=== PATIENT | female | born 1975 | race American Indian/Alaskan Native ===

== ENCOUNTER 2017-04-30 12:40 | Outpatient (CLI) | payer BC ==
--- NOTE | 2017-04-30 14:07 | Mammography Report ---
Bilateral mammogram: No previous studies available. CAD study utilized. Findings: Scattered glandular parenchyma bilaterally. Focal asymmetry outer posterior right breast and inner posterior right breast. Focal asymmetry outer anterior left breast and smaller inner mid left breast. Focal circumscribed asymmetries upper posterior right breast. No microcalcification. Benign axilla. Asymmetries right and left breast. Recommend comparison with previous studies. If previous studies are not available Spot findings sonographic examination of the eyes. BI-RADS zero.
== END 2017-04-30 12:41 | disposition home or self-care (01) ==
LOC: SPVIMAG 12:40
PROVIDERS: ATTEND Family Medicine
DX: Z12.31 Encounter for screening mammogram for malignant neoplasm of breast (principal)
CPT/HCPCS: 77067

== ENCOUNTER 2017-05-17 15:37 | Outpatient (CLI) | payer BC ==
--- NOTE | 2017-05-17 16:29 | Mammography Report ---
BILATERAL DIGITAL DIAGNOSTIC MAMMOGRAM : 05/17/17 15:37:00 CLINICAL: Recalled for bilateral asymmetries. COMPARISON:05/28/17 screening FINDINGS: Bilateral additional mammographic views were performed and are negative. IMPRESSION: Negative Mammogram. BI-RADS CATEGORY: 1 -- Negative RECOMMENDATION: Routine mammographic screening in one year. ACR BI-RADS MAMMOGRAPHIC CODES: 0 = Needs additional imaging evaluation; 1 = Negative; 2 = Benign; 3 = Probably benign; 4 = Suspicious; 5 = Malignant; 6 = Known biopsy-proven malignancy COMMENT: 1. Dense breast tissue, i.e., adenosis, fibrocystic changes, etc., may obscure an underlying neoplasm. 2. Approximately 10% of cancers are not detected with mammography. 3. A negative mammography report should not delay biopsy if a clinically suspicious mass is present. COMMENT: Patient follow-up letters are generated via our [employer] application.
== END 2017-05-17 15:38 | disposition home or self-care (01) ==
LOC: SPVWC 15:37
PROVIDERS: ATTEND Internal Medicine
DX: R92.8 Other abnormal and inconclusive findings on diagnostic imaging of breast (principal)
CPT/HCPCS: 77066

== ENCOUNTER 2018-05-06 08:49 | Outpatient (CLI) | payer BC ==
--- NOTE | 2018-05-06 12:12 | Mammography Report ---
Bilateral mammogram: Compared to 05/17/17 and 04/30/17. CAD study utilized. Findings: Predominance adipose tissue bilaterally. New focal asymmetry lower posterior left breast. Seen only on MLO view. No microcalcification. Normal axilla. Impression: New asymmetry left breast. Recommend spot compression and if necessary sonographic examination. BI-RADS CATEGORY: 0 = Needs additional imaging evaluation ACR BI-RADS MAMMOGRAPHIC CODES: 0 = Needs additional imaging evaluation; 1 = Negative; 2 = Benign; 3 = Probably benign; 4 = Suspicious; 5 = Malignant; 6 = Known biopsy-proven malignancy COMMENT: 1. Dense breast tissue, i.e., adenosis, fibrocystic changes, etc., may obscure an underlying neoplasm. 2. Approximately 10% of cancers are not detected with mammography. 3. A negative mammography report should not delay biopsy if a clinically suspicious mass is present. COMMENT: Patient follow-up letters are generated in [employer].
== END 2018-05-06 08:50 | disposition home or self-care (01) ==
LOC: SPVWC 08:49
PROVIDERS: ATTEND Internal Medicine
DX: Z12.31 Encounter for screening mammogram for malignant neoplasm of breast (principal)
CPT/HCPCS: 77067

== ENCOUNTER 2018-05-27 10:30 | Outpatient (CLI) | payer BC ==
--- NOTE | 2018-05-27 11:32 | Mammography Report ---
LEFT DIGITAL DIAGNOSTIC MAMMOGRAM : 05/27/18 10:30:00 CLINICAL: Recalled for asymmetry. COMPARISON:05/06/18 screening FINDINGS: Additional mammographic views were performed and are negative. IMPRESSION: Negative Mammogram. BI-RADS CATEGORY: 1 -- Negative RECOMMENDATION: Routine mammographic screening in one year. ACR BI-RADS MAMMOGRAPHIC CODES: 0 = Needs additional imaging evaluation; 1 = Negative; 2 = Benign; 3 = Probably benign; 4 = Suspicious; 5 = Malignant; 6 = Known biopsy-proven malignancy COMMENT: 1. Dense breast tissue, i.e., adenosis, fibrocystic changes, etc., may obscure an underlying neoplasm. 2. Approximately 10% of cancers are not detected with mammography. 3. A negative mammography report should not delay biopsy if a clinically suspicious mass is present. COMMENT: Patient follow-up letters are generated via our [employer] application.
== END 2018-05-27 10:31 | disposition home or self-care (01) ==
LOC: SPVWC 10:30
PROVIDERS: ATTEND Internal Medicine
DX: R92.8 Other abnormal and inconclusive findings on diagnostic imaging of breast (principal)

== ENCOUNTER 2019-06-02 09:03 | Outpatient (CLI) | payer BC ==
--- NOTE | 2019-06-02 10:27 | Mammography Report ---
DIGITAL SCREENING MAMMOGRAM WITH CAD, 06/02/2019 INDICATION: Routine screening mammography. TECHNIQUE: Digital bilateral 2D mammography was obtained in the craniocaudal and mediolateral obliq ue projections. This examination was interpreted with the benefit of Computer-Aided Detection analysi s. COMPARISON: 05/06/2018 FINDINGS: Breast Density: The breasts are heterogeneously dense, which may obscure small masses. There is no evidence of dominant mass, suspicious calcifications or architectural distortion in eithe r breast. IMPRESSION: No mammographic evidence of malignancy. Follow up recommendation: Routine yearly BI-RADS Category 1: Negative. A "normal" or negative report should not discourage follow up or biopsy of a clinically significant f inding. A written summary of these findings will be mailed to the patient. The patient will be entered into a mammography reporting system which will generate a reminder letter for the patient's next appointmen t at the appropriate interval. The [employer] recommends yearly mammograms starting at age 40 and continuing as l mandie as a woman is in good health. Breast MRI is recommended for women with an approximate 20-25% or greater lifetime risk of breast cancer, including women with a strong family history of breast or ova rashard cancer or who have been treated for Hodgkin's disease. Signer Name: Nahun Maloney MD Signed: 06/02/2019 10:22 AM Workstation Name: [id number]
== END 2019-06-02 09:04 | disposition home or self-care (01) ==
LOC: SPVWC 09:03
PROVIDERS: ATTEND Family Medicine
DX: Z12.31 Encounter for screening mammogram for malignant neoplasm of breast (principal)
CPT/HCPCS: 77067

== ENCOUNTER 2020-06-02 15:50 | Outpatient (CLI) | payer BC ==
--- NOTE | 2020-06-02 17:19 | Mammography Report ---
DIGITAL SCREENING MAMMOGRAM WITH CAD, 06/02/2020 CLINICAL INFORMATION / INDICATION: Routine screening mammography. SCREENING MAMMO Z12.31 TECHNIQUE: Digital bilateral 2D mammography was obtained in the craniocaudal and mediolateral obliqu e projections. This examination was interpreted with the benefit of Computer-Aided Detection analysis . COMPARISON: 04/30/17 and 06/02/19. FINDINGS: Breast Density: There are scattered areas of fibroglandular density. No dominant mass, suspicious calcifications, or architectural distortion in either breast. IMPRESSION: No mammographic evidence of malignancy. Follow up recommendation: Routine yearly BI-RADS Category 1: Negative. A "normal" or negative report should not discourage follow up or biopsy of a clinically significant f inding. A written summary of these findings will be mailed to the patient. The patient will be entered into a mammography reporting system which will generate a reminder letter for the patient's next appointmen t at the appropriate interval. The [employer] recommends yearly mammograms starting at age 40 and continuing as l mandie as a woman is in good health. Breast MRI is recommended for women with an approximate 20-25% or greater lifetime risk of breast cancer, including women with a strong family history of breast or ova rashard cancer or who have been treated for Hodgkin's disease. Signer Name: Chris Prather MD Signed: 06/02/2020 5:14 PM Workstation Name: [id number]
== END 2020-06-02 15:51 | disposition home or self-care (01) ==
LOC: SPVWC 15:50
PROVIDERS: ATTEND Family Medicine
DX: Z12.31 Encounter for screening mammogram for malignant neoplasm of breast (principal)
CPT/HCPCS: 77067

== ENCOUNTER 2021-07-05 09:54 | Outpatient (CLI) | payer BC ==
--- NOTE | 2021-07-06 15:49 | Mammography Report ---
DIGITAL SCREENING MAMMOGRAM WITH CAD, 07/05/2021 CLINICAL INFORMATION / INDICATION: Routine screening mammography. SCREENING MAMMO Z12.31 TECHNIQUE: Digital bilateral 2D mammography was obtained in the craniocaudal and mediolateral obliqu e projections. This examination was interpreted with the benefit of Computer-Aided Detection analysis . COMPARISON: 06/02/2020, 06/02/2019, 05/06/2018 FINDINGS: Breast Density: There are scattered areas of fibroglandular density. No dominant mass, suspicious calcifications, or architectural distortion in either breast. IMPRESSION: No mammographic evidence of malignancy. Follow up recommendation: Routine yearly BI-RADS Category 1: NEGATIVE A "normal" or negative report should not discourage follow up or biopsy of a clinically significant f inding. A written summary of these findings will be mailed to the patient. The patient will be entered into a mammography reporting system which will generate a reminder letter for the patient's next appointmen t at the appropriate interval. The [employer] recommends yearly mammograms starting at age 40 and continuing as l mandie as a woman is in good health. Breast MRI is recommended for women with an approximate 20-25% or greater lifetime risk of breast cancer, including women with a strong family history of breast or ova rashard cancer or who have been treated for Hodgkin's disease. Signer Name: Sy Harkins DO Signed: 07/06/2021 3:45 PM Workstation Name: [email or web address]
== END 2021-07-05 09:55 | disposition home or self-care (01) ==
LOC: SPVWC 09:54
PROVIDERS: ATTEND Family Medicine
DX: Z12.31 Encounter for screening mammogram for malignant neoplasm of breast (principal)
CPT/HCPCS: 77067